=== PATIENT | male | born 2000 | race Hispanic/Latino ===

== ENCOUNTER 2021-10-24 16:43 | Emergency (ER) | payer OTHER ==
[~2021-10-24] VITALS: Ht 162.6 cm; Wt 80.0 kg
[2021-10-24 16:43] VITALS: BP 137/77
== END 2021-10-24 20:08 | disposition home or self-care (01) ==
LOC: M ED 16:43
DX: J02.9 Acute pharyngitis, unspecified (principal); R05.9 Cough, unspecified

== ENCOUNTER 2023-05-17 08:49 | Emergency (ER) | payer OTHER ==
[~2023-05-17] VITALS: Ht 162.6 cm; Wt 82.1 kg
[2023-05-17 08:50] VITALS: BP 134/78; TEMP 98.7; O2SAT 100
== END 2023-05-17 10:38 | disposition home or self-care (01) ==
LOC: M ED 08:49
DX: U07.1 COVID-19 (principal)

== ENCOUNTER 2023-06-09 23:11 | Emergency (ER) | payer OTHER ==
[~2023-06-09] VITALS: Ht 162.6 cm; Wt 83.7 kg
[2023-06-10] MEDS ORDERED: IPRATROPIUM 0.5MG/ALBUTEROL 2.5MG INH SOL UD 3ML (DUONEB) NEB ONE (07:10)
[2023-06-10] MEDS ORDERED: predniSONE 20 MG TAB PO ONE (07:10)
[2023-06-10] MEDS ORDERED: PRED20TA PO (07:38)
[2023-06-10] MEDS ORDERED: VENTAER INH (07:38)
[2023-06-10 08:01] VITALS: BP 121/71; TEMP 97.3; O2SAT 96
== END 2023-06-10 08:02 | disposition home or self-care (01) ==
LOC: M ED 23:11
DX: R05.9 Cough, unspecified (principal); B34.8 Other viral infections of unspecified site; B34.1 Enterovirus infection, unspecified; J45.909 Unspecified asthma, uncomplicated; Z79.52 Long term (current) use of systemic steroids
CPT/HCPCS: 87486; 87581; 87633; 87798; 94640; 99284; J7512